=== PATIENT | female | born 1950 | race Caucasian/White ===

== ENCOUNTER 2017-05-24 17:00 | Emergency (ER) | payer MEDICARE, OTHER ==
[~2017-05-24] VITALS: Ht 165.1 cm; Wt 68.0 kg
--- NOTE | 2017-05-24 17:00 | NUR ---
Patient ambulated straight to ER bed 2A. Comfort and safety measures initiated. NPO maintained and explained to patient and family why "NPO for now" until seen by MD.
--- NOTE | 2017-05-24 17:05 | NUR ---
notified about the patient.
--- NOTE | 2017-05-24 17:28 | NUR ---
MD at bedside evaluating the patient.
[2017-05-24] MEDS ORDERED: LIDOCAINE HCL 1% 20 ML VIAL IJ ONE (17:45)
[2017-05-24] MEDS ORDERED: TDAP DIPH,PERTUSS,TET VAC/PF 0.5 ML DISP.SYRIN IM ONE ×2 (17:45→17:51)
[2017-05-24] MEDS ORDERED: LIDOCAINE HCL 1% 20 ML VIAL ONE (17:46)
--- NOTE | 2017-05-24 18:14 | NUR ---
Patient discharged in stable conditon. Written and verbal after care instructions given to patient. Patient verbalizes understanding of instructions. Follow-up with [facility] hand surgeon as instructed by Dr Mandujano today.
[2017-05-24] MEDS ORDERED: CEFAZOLIN 1 G VIAL ONE (18:22)
[2017-05-24] MEDS ORDERED: LIDOCAINE 0.5% MPF 50 ML VIAL ONE (18:24)
--- NOTE | 2017-05-24 18:27 | NUR ---
Copies of facesheet, official x-ray results and notes faxed to [facility] transfer [place] per Dr Mandujano- fax confirmation received.
[2017-05-24] MEDS ORDERED: CEFAZOLIN 1 G VIAL IM ONE (18:30)
== END 2017-05-24 18:16 | disposition home or self-care (01) ==
LOC: ER 17:00
DX: S68.114A Complete traumatic metacarpophalangeal amputation of right ring finger, initial encounter (principal); Z88.8 Allergy status to other drugs, medicaments and biological substances; W54.0XXA Bitten by dog, initial encounter; Y93.89 Activity, other specified; Y92.89 Other specified places as the place of occurrence of the external cause; Y99.8 Other external cause status
CPT/HCPCS: 73140; 90715; A4217; A4663; J0690; J3490